=== PATIENT | male | born 1955 | race African-American/Black ===

== ENCOUNTER 2021-03-29 12:13 | Emergency (ER) | payer MEDICARE ==
[~2021-03-29] VITALS: Ht 167.6 cm; Wt 73.0 kg
[2021-03-29] MEDS ORDERED: KETOROLAC 60MG/2ML VIAL IM ONE (13:15)
[2021-03-29] MEDS ORDERED: CYCLOBENZAPRINE 10MG TABLET PO ONE (13:15)
[2021-03-29] MEDS ORDERED: CYCLOBENZAPRINE 10MG TABLET PO NR (18:22)
[2021-03-29] MEDS ORDERED: KETOROLAC 60MG/2ML VIAL IM NR (18:22)
[2021-03-29] MEDS ORDERED: TRAMADOL 50MG TABLET PO ONE (21:45)
[2021-03-29 21:58] LABS: BASOPHILS % 0.4 % (0.0-2.0); EOSINOPHILS % 0.9 % (0.0-5.0); HEMATOCRIT. 41.3 % (42.0-52.0); HEMOGLOBIN. 13.9 g/dL (14.0-18.0); LYMPHOCYTES % 8.2 % (20.0-50.0); MEAN CORPUSCULAR HEMOGLOBIN 30.3 pg (28.0-32.0); MEAN CORPUSCULAR VOLUME 89.7 fL (80.0-94.0); MEAN PLATELET VOLUME 7.5 fl (7.4-10.4); MONOCYTES % 5.7 % (2.0-8.0); NEUTROPHILS % 84.8 % (40.0-76.0); PLATELET 287 x1000/uL (130-400); RED CELL DISTRIBUTION WIDTH 14.7 % (11.6-14.6)
[2021-03-29 22:05] LABS: CHLORIDE 107 mEq/L (98-107)
[2021-03-29] MEDS ORDERED: IBUP-2029 MT (22:28)
[2021-03-29] MEDS ORDERED: CYCL10TA7 MT (22:28)
[2021-03-30] MEDS ORDERED: IOHEXOL-300 100 ML BOTTLE ONE (00:05)
[2021-03-30 01:51] VITALS: BP 156/88
== END 2021-03-30 02:05 | disposition home or self-care (01) ==
LOC: ER 12:13
DX: M43.6 Torticollis (principal); M47.892 Other spondylosis, cervical region
CPT/HCPCS: 36415; 70491; 72040; 80048; 85025; 96372; 99285; J1885; Q9967